=== PATIENT | male | born 1975 | race Caucasian/White ===

== ENCOUNTER 2020-11-26 22:39 | Emergency (ER) | payer MEDICAID, SELFPAY ==
[2020-11-26 22:41] VITALS: BP 129/87; PULSE 55; RESP 18; TEMP 37.6; O2SAT 94; BMI 38.0
[2020-11-26 23:26] LABS: Absolute Lymphocyte Count 2.18 X10^3/uL (0.83-4.51); Absolute Neutrophil Count 6.6 X10^3/uL (2.0-7.7); Basophil# 0.04 X10^3/uL; Basophil% 0.4 % (0-1); Eosinophil# 0.03 X10^3/uL; Eosinophils% 0.3 % (0-5); Hemoglobin 14.9 g/dL (13.0-16.5); Lymphocyte # 2.18 X10^3/ul (0.83-4.51); Lymphocyte % 22.4 % (19-41); Mean Corp Hgb Conc 33.1 g/dL (32-36); Mean Corpuscular Volume 87.7 fL (80-94); Mean Platelet Vol. 10.4 fl (6.2-12.0); Monocyte# 0.88 X10^3/uL; Monocyte% 9.1 % (0-10); NRBC Flagged by Analyzer 0 % (0-5); Neutrophil # 6.56 X10^3/uL (2.7-7.7); Neutrophil % 67.5 % (47-70); Platelet Count 251 K/mm3 (150-450); RBC Distribution Width CV 13.4 % (11.6-14.6); RBC Distribution Width SD 43.2 fl (35.1-43.9); Red Blood Count 5.13 M/mm3 (4.6-6.2); White Blood Count 9.7 K/mm3 (4.4-11.0)
[2020-11-26 23:39] LABS: BUN 15 mg/dL (7-18); BUN/Creat Ratio 17.4 RATIO (10-20); Calcium,Total 9.3 mg/dL (8.5-10.1); Creatinine, Serum 0.86 mg/dL (0.70-1.30); EST Glomerular Filtration Rate 101 mL/min (>60); Est Glom Filt Rate - Afr Amer 122 mL/min (>60); Estimated Creatinine Clearance 103.84 ml/min; Glucose 119 mg/dL (74-106); Potassium 3.3 mmol/L (3.5-5.1); Sodium Level 137 mmol/L (136-145)
[2020-11-26 23:44] LABS: Alcohol, Blood (Medical)-Serum < 3.0 mg/dL
--- NOTE | 2020-11-26 23:50 | EDS_ITS ---
HPI History of Present Illness Chief Complaint: ETOH Intox Narrative Narrative: Patient presents to the emergency department with altered mental status. Reported he had drank alcohol earlier in the day and is intoxicated with alcohol. Patient denies any suicidal or homicidal ideation to myself or the nursing staff. It was reported on his initial intake that he was suicidal but he denies this. Denies any illicit drug use. He takes his medications via a punch pack and nursing staff stated that his brother noted that he had not take his morning medications. It appears he is taking all of his other medications however. Patient denies any complaints at this time. [facility] Medical History Anxiety Bipolar disorder Depression Schizophrenia Allergy/AdvReac Type Severity Reaction Status Date / Time divalproex sodium Allergy PT UNSURE Verified 11/26/20 22:45 [From Depakote] OF REACTION Surgical History H/O heart artery stent Social History Smoking Status: Current every day smoker ROS ROS ED ROS Narrative ROS patient appears drowsy General: Denies fever, chills, sweats Eyes: Denies visual changes, blurred vision, double vision ENT: Denies ear pain, rhinorrhea, sore throat Cardiovascular: Denies chest pain, palpitations, heart racing Respiratory: Denies dyspnea, cough, sputum, dyspnea on exertion, orthopnea,PND GI: Denies abdominal pain, nausea, vomiting, diarrhea, constipation, melena : Denies dysuria, hematuria, frequency Musculoskeletal: Denies myalgias, arthralgias, neck pain, back pain Skin: Denies rash, abscess, abrasions Neuro: Denies headache, weakness, paresthesia Psych: Denies depression, anxiety Endo: Denies polyuria, polydipsia, polyphagia Heme: Denies easy bruising, easy bleeding, lymphadenopathy Allergy: Denies hives, swelling EXAM Physical Exam Narrative Exam Narrative: Vital signs reviewed General: Well-nourished well-developed Head: Normocephalic atraumatic Eyes: Pupils equal round and reactive to light extraocular movements intact. Bloodshot eyes bilateral ENT: TMs clear no hemotympanum no trauma Neck: Nontender full range of motion Cardiovascular: Regular rate rhythm no murmurs normal S1-S2 Respiratory: No distress clear to auscultation bilaterally chest nontender Abdomen: Soft nontender nondistended normal bowel sounds no masses Back: Nontender no CVA tenderness Extremities: Nontender active range of motion ?4 extremities no trauma Skin: Normal color no trauma Neuro alert appears drowsy. Cranial nerves II through XII intact normal sensation reflexes Const Vital Signs: 11/26/20 22:41 11/27/20 00:00 11/27/20 00:52 Temperature 99.6 F H Temperature Source Temporal Pulse Rate 55 L 93 93 Respiratory Rate 18 14 12 Blood Pressure 129/87 H 120/78 131/83 H Blood Pressure Mean 101 92 99 Pulse Ox 94 92 93 Oxygen Delivery Method Room Air Room Air Room Air 11/27/20 01:08 Temperature Temperature Source Pulse Rate 87 Respiratory Rate 18 Blood Pressure 122/77 H Blood Pressure Mean 92 Pulse Ox 93 Oxygen Delivery Method Room Air MDM MDM MDM Narrative Medical decision making narrative: IV established and given IV fluids. Lab work and CT head obtained. Patient felt better after treatment. Lab work shows no acute abnormality including CBC BMP alcohol and tox screen. CT head negative. Reevaluation patient resting more comfortably. He was here for a wedding. His son is going to take him home. I have a low suspicion for acute emergent cause of symptoms. Again he is not suicidal. Lab Data Labs: Laboratory Results - last 24 hr 11/26/20 11/26/20 11/26/20 23:15 23:15 23:15 WBC 9.7 RBC 5.13 Hgb 14.9 Hct 45.0 MCV 87.7 MCH 29.0 MCHC 33.1 RDW Std Deviation 43.2 RDW Coeff of Emanuel 13.4 Plt Count 251 MPV 10.4 Immature Gran % (Auto) 0.300 Neut % (Auto) 67.5 Lymph % (Auto) 22.4 Graves % (Auto) 9.1 Eos % (Auto) 0.3 Baso % (Auto) 0.4 Absolute Neuts (auto) 6.6 Absolute Lymphs (auto) 2.18 Nucleated RBC % 0 Sodium 137 Potassium 3.3 L Chloride 104 Carbon Dioxide 26.0 Anion Gap 7 BUN 15 Creatinine 0.86 Estim Creat Clear Calc 103.84 Est GFR (MDRD) Af Amer 122 Est GFR (MDRD) Non-Af 101 BUN/Creatinine Ratio 17.4 Glucose 119 H Calcium 9.3 Urine Opiates Screen Urine Methadone Screen Ur Barbiturates Screen Ur Phencyclidine Scrn Ur Amphetamines Screen U Methamphetamin-MDMA U Benzodiazepines Scrn Urine Cocaine Screen U Cannabinoids Screen Ur Drug Screen Comment Ethyl Alcohol < 3.0 11/26/20 23:50 WBC RBC Hgb Hct MCV MCH MCHC RDW Std Deviation RDW Coeff of Emanuel Plt Count MPV Immature Gran % (Auto) Neut % (Auto) Lymph % (Auto) Graves % (Auto) Eos % (Auto) Baso % (Auto) Absolute Neuts (auto) Absolute Lymphs (auto) Nucleated RBC % Sodium Potassium Chloride Carbon Dioxide Anion Gap BUN Creatinine Estim Creat Clear Calc Est GFR (MDRD) Af Amer Est GFR (MDRD) Non-Af BUN/Creatinine Ratio Glucose Calcium Urine Opiates Screen NEGATIVE Urine Methadone Screen NEGATIVE Ur Barbiturates Screen NEGATIVE Ur Phencyclidine Scrn NEGATIVE Ur Amphetamines Screen NEGATIVE U Methamphetamin-MDMA NEGATIVE U Benzodiazepines Scrn NEGATIVE Urine Cocaine Screen NEGATIVE U Cannabinoids Screen NEGATIVE Ur Drug Screen Comment Ethyl Alcohol Radiography Diagnostic Testing: Radiology Impression Brain CT 11/27/20 23:49 IMPRESSION: Normal unenhanced CT scan of the brain. Electronically Signed: Princess Bahena MD at 0:55 EDT Tel , Service support , Discharge Plan Triage Chief Complaint: ETOH Intox ED Provider: Efren Pham Dx/Rx/DC Orders Primary Care Provider: Care Physician,No Primary
[2020-11-26 23:52] LABS: Anion Gap 7 (5-15); Chloride 104 mmol/L (98-107)
[2020-11-26] MEDS: 0.9% Normal Saline 1,000 ML 1000 ML IV (23:56)
[2020-11-27] VITALS: BP 120/78; PULSE 93; RESP 14; O2SAT 92
[2020-11-27 00:09] LABS: Amphetamine Urine VISTA NEGATIVE (<1000 ng/mL); Barbiturate Urine VISTA NEGATIVE (< 200 ng/mL); Benzodiazepine Urine VISTA NEGATIVE (< 200 ng/mL); Cocaine Urine VISTA NEGATIVE (< 300 ng/mL); Ecstacy Urine VISTA NEGATIVE (< 500 ng/mL); Methadone Urine VISTA NEGATIVE (< 300 ng/mL); PCP Urine VISTA NEGATIVE (< 25 ng/mL); THC Urine VISTA NEGATIVE (< 50 ng/mL); Vista UDS pH Range 5
[2020-11-27 00:52] VITALS: BP 131/83; PULSE 93; RESP 12; O2SAT 93
[2020-11-27 01:08] VITALS: BP 122/77; PULSE 87; RESP 18; O2SAT 93
[2020-11-27 01:38] VITALS: BP 123/87; PULSE 97; RESP 16
--- NOTE | 2020-11-27 23:49 | CT_ITS ---
STUDY: CT BRAIN WITHOUT CONTRAST REASON FOR EXAM: Male, 45 years old. confusion RADIATION DOSAGE (If Supplied By Facility): CTDIvol = ( 44.99 ) mGy, DLP = ( 863.60 ) mGycm TECHNIQUE: Transaxial CT imaging of the brain was performed without administration of intravenous contrast material. Individualized dose optimization techniques were used for this CT. COMPARISON: No relevant priors. FINDINGS: Normal soft tissue structures. Normal calvarium. Normal size ventricles and extra-axial spaces for the patient''s age. Normal white matter tracts of the cerebral hemispheres. Normal basal ganglia and thalami. Normal brainstem. Normal cerebellum. There is no intracranial hemorrhage. There are no findings of an acute ischemic infarction. Normal visualized paranasal sinuses. CT/Brain/Head without Contrast IMPRESSION: Normal unenhanced CT scan of the brain. Electronically Signed: Princess Bahena MD at 0:55 EDT Tel , Service support ,
== END 2020-11-27 01:40 | disposition home or self-care (01) ==
PROVIDERS: Emergency Provider Emergency Medicine
DX: F10.129 Alcohol abuse with intoxication, unspecified (principal); Y90.0 Blood alcohol level of less than 20 mg/100 ml; Z95.5 Presence of coronary angioplasty implant and graft; F17.200 Nicotine dependence, unspecified, uncomplicated
CPT/HCPCS: 70450; 80048; 80307; 82077; 85025; 96360; 99283; J7030; A4216